=== PATIENT | male | born 1955 | race Caucasian/White ===

== ENCOUNTER 2023-04-19 11:29 | Inpatient (IN) | payer BC, MEDICAID ==
[~2023-04-19] VITALS: Ht 180.3 cm; Wt 182.8 kg
[~2023-04-19 11:29] MED LIST: ASPI-1071 PO; LISI5TAB22 PO; LOVA20TA2 PO; NO HOME MEDS; OMEP20TA43 PO; TERA2CAP4 PO
[2023-04-19 12:24] LABS: BASOPHILS % (AUTO) 0.2 % (0-1); EOSINOPHILS % (AUTO) 0.2 % (0-6); HEMATOCRIT 42.7 % (42.0-52.0); LYMPHOCYTES # (AUTO) 1.1 X10'3 (1.1-4.8); LYMPHOCYTES % (AUTO) 12.5 % (21-51); MEAN CORPUSCULAR HEMOGLOBIN 34.1 PG (27.0-31.0); MEAN CORPUSCULAR VOLUME 97.2 FL (78-98); MEAN PLATELET VOLUME 7.1 FL (7.4-10.4); MONOCYTES # (AUTO) 0.6 X10'3 (0-0.9); MONOCYTES % (AUTO) 7.1 % (2-12); NEUTROPHILS # (AUTO) 7.1 X10'3 (1.8-7.7); PLATELET COUNT 251 X10'3 (140-440); RED BLOOD COUNT 4.39 X10'6 (4.70-6.10); RED CELL DISTRIBUTION WIDTH 13.7 % (11.5-14.5); WHITE BLOOD COUNT 8.9 X10'3 (4.5-11.0)
[2023-04-19 12:26] LABS: ALANINE AMINOTRANSFERASE 17 U/L (12-78); ALBUMIN 4.2 G/DL (3.4-5.0); ALBUMIN/GLOBULIN RATIO 1.1 (1.1-1.5); ALKALINE PHOSPHATASE 89 IU/L (46-116); ANION GAP 8 (8-16); ASPARTATE AMINO TRANSFERASE 20 U/L (10-37); BILIRUBIN,TOTAL 1.2 MG/DL (0.1-1.0); BLOOD UREA NITROGEN 8 MG/DL (7-18); BUN/CREATININE RATIO 7.8 (10.0-20.0); CALCIUM 8.6 MG/DL (8.5-10.1); CHLORIDE 85 MMOL/L (99-107); CREATININE 1.02 MG/DL (0.60-1.10); GLUCOSE 97 MG/DL (70-104); POTASSIUM 4.6 MMOL/L (3.5-5.1); TOTAL CARBON DIOXIDE 27.4 MMOL/L (24-32); TOTAL PROTEIN 7.9 G/DL (6.4-8.2); eCRCL 74 ML/MIN; eGFR 73 ML/MIN
[2023-04-19 12:29] LABS: SODIUM 120 MMOL/L (135-145)
[2023-04-19 12:34] LABS: PRO BRAIN NATRIURETIC PEPTIDE 895 PG/ML (0-125)
[2023-04-19 12:49] LABS: APTT 29 SECONDS (22-32); PROTHROMBIN TIME 10.7 SECONDS (9.0-12.0)
[2023-04-19 13:10] LABS: BILIRUBIN,URINE NEGATIVE (Neg); CLARITY,URINE CLEAR (Clear); COLOR,URINE YELLOW (Yellow); GLUCOSE, URINE NEGATIVE (Neg); KETONES,URINE 15 mg/dl (Neg); LEUKOCYTE ESTERASE ,URINE NEGATIVE (Neg); NITRITES, URINE NEGATIVE (Neg); OCCULT BLOOD,URINE MODERATE (Neg); PROTEIN,URINE TRACE mg/dl (Neg); UROBILINOGEN,URINE 0.2 E.U/dL (0.2-1.0)
[2023-04-19 13:14] LABS: UA COLLECTION TYPE VOIDED
[2023-04-19 13:15] LABS: URINE AMPHETAMINE SCREEN NEGATIVE (Neg); URINE BARBITUATE SCREEN NEGATIVE (Neg); URINE BENZODIAZEPINES SCREEN NEGATIVE (Neg); URINE CANNABINOID SCREEN POSITIVE (Neg); URINE COCAINE SCREEN NEGATIVE (Neg); URINE METHADONE SCREEN NEGATIVE (Neg); URINE OPIATE SCREEN NEGATIVE (Neg); URINE PHENCYCLIDINE SCREEN NEGATIVE (Neg)
[2023-04-19 13:21] LABS: BACTERIA,URINE 1+ /HPF (Neg); MUCUS STRANDS FEW /LPF (Neg); RBC,URINE 0-2 /HPF (0-2); SQUAMOUS EPITHELIAL CELL,UR FEW /LPF (FEW); WBC,URINE 0-4 /HPF (0-4)
[2023-04-19 14:41] LABS: MAGNESIUM 1.4 MG/DL (1.5-2.4); THYROID STIMULATING HORMONE 0.52 ulU/ml (0.34-4.50)
[2023-04-19] MEDS ORDERED: LISI20TA28 PO (17:08)
[2023-04-19] MEDS ORDERED: CARV6.2555 PO (17:08)
[2023-04-19] MEDS ORDERED: FLUT1BLS13 INH (17:08)
[2023-04-19] MEDS ORDERED: POLY119P3 PO (17:08)
[2023-04-19] MEDS ORDERED: ALBUTEROL (17:08)
[2023-04-19] MEDS ORDERED: ASPI-1397 PO (17:08)
[2023-04-19] MEDS ORDERED: acetaminophen 325mg tablet PO PRN (17:55)
[2023-04-19] MEDS ORDERED: magnesium 2GM in 50ml NS 50 ML IV PRN (17:55)
[2023-04-19] MEDS ORDERED: nitroGLYCERIN 0.4mg SUBLingual tab SL PRN (17:55)
[2023-04-19] MEDS ORDERED: magnesium hydroxide 30ml (MOM) UD suspension PO PRN (17:55)
[2023-04-19] MEDS ORDERED: potassium Cl 20 mEq SR tablet PO PRN ×2 (17:55)
[2023-04-19] MEDS ORDERED: potassium Cl 40MEQ/1/2NS 520ml 520 ML IV PRN (17:55)
[2023-04-19] MEDS ORDERED: mag hydrox/Alum hydrox/simeth 30ml oral suspension PO PRN (17:55)
[2023-04-19] MEDS ORDERED: aminophylline 250mg/10ml inj. IV PRN (17:55)
[2023-04-19] MEDS ORDERED: metoprolol tartrate 1mg/ml inj IV PRN (17:55)
[2023-04-19] MEDS ORDERED: ondansetron/PF 4mg/2ml inj IV PRN (17:55)
[2023-04-19] MEDS ORDERED: magnesium 4gm in 100ml NS 100 ML IV PRN (17:55)
[2023-04-19] MEDS: normal saline 500ml IV soln 500 ML IV ONE (18:30)
[2023-04-19] MEDS: PERFLUTREN PROTEIN-A MICROSPHR (Optison) 0.22 MG/ML 3ML VIAL IV ONE (18:42)
[2023-04-19] MEDS: carvedilol 6.25mg tablet PO SCH (19:24)
[2023-04-19] MEDS: HYDROcodone/acetaminophen 10/325mg tab PO ONE (19:24)
[2023-04-19] MEDS: normal saline 1000ml 1,000 ML IV SCH (19:25)
[2023-04-19] MEDS: K and/or MAG REPLACEMENT MC SCH (19:58)
[2023-04-19] MEDS: docusate sod 100mg capsule PO SCH (20:12)
[2023-04-19] MEDS: enoxaparin 40mg/0.4ml syringe SQ SCH (20:12)
[2023-04-19] MEDS: temazepam 15mg capsule PO ONE (21:56)
[2023-04-20] VITALS (16 sets, daily range): BP systolic 134–195; BP diastolic 80–102; PULSE 97–120; RESP 14–20; TEMP 97.2–98.4; O2SAT 96–100
[2023-04-20] MEDS: traMADol 50MG tablet PO PRN (04:35)
[2023-04-20 06:07] LABS: ALANINE AMINOTRANSFERASE 13 U/L (12-78); ALBUMIN 3.4 G/DL (3.4-5.0); ALBUMIN/GLOBULIN RATIO 1.1 (1.1-1.5); ALKALINE PHOSPHATASE 64 IU/L (46-116); ANION GAP 9 (8-16); ASPARTATE AMINO TRANSFERASE 11 U/L (10-37); BILIRUBIN,TOTAL 1.3 MG/DL (0.1-1.0); BLOOD UREA NITROGEN 7 MG/DL (7-18); BUN/CREATININE RATIO 7.6 (10.0-20.0); CALCIUM 8.5 MG/DL (8.5-10.1); CHLORIDE 92 MMOL/L (99-107); CHOL/HDL RATIO 1.8 (0.00-4.99); CHOLESTEROL 172 MG/DL (0-200); CREATININE 0.92 MG/DL (0.60-1.10); GLUCOSE 75 MG/DL (70-104); HDL CHOLESTEROL 96 MG/DL (35-60); LDL CHOLESTEROL 48 MG/DL (50-100); MAGNESIUM 1.5 MG/DL (1.5-2.4); SODIUM 127 MMOL/L (135-145); TOTAL CARBON DIOXIDE 25.7 MMOL/L (24-32); TOTAL PROTEIN 6.6 G/DL (6.4-8.2); TRIGLYCERIDES 86 MG/DL (20-135); eCRCL 82 ML/MIN; eGFR 82 ML/MIN
[2023-04-20 06:08] LABS: BASOPHILS % (AUTO) 0.7 % (0-1); EOSINOPHILS % (AUTO) 0.2 % (0-6); HEMATOCRIT 36.8 % (42.0-52.0); HEMOGLOBIN 12.7 g/dl (14.0-17.9); LYMPHOCYTES # (AUTO) 1.2 X10'3 (1.1-4.8); LYMPHOCYTES % (AUTO) 16.4 % (21-51); MEAN CORPUSCULAR HEMOGLOBIN 33.8 PG (27.0-31.0); MEAN CORPUSCULAR HGB CONC 34.4 g/dL (33.0-36.5); MEAN CORPUSCULAR VOLUME 98.2 FL (78-98); MEAN PLATELET VOLUME 7.1 FL (7.4-10.4); MONOCYTES # (AUTO) 0.8 X10'3 (0-0.9); MONOCYTES % (AUTO) 11.2 % (2-12); NEUTROPHILS # (AUTO) 5.2 X10'3 (1.8-7.7); NEUTROPHILS % (AUTO) 71.5 % (42-75); PLATELET COUNT 192 X10'3 (140-440); RED BLOOD COUNT 3.75 X10'6 (4.70-6.10); RED CELL DISTRIBUTION WIDTH 13.5 % (11.5-14.5); WHITE BLOOD COUNT 7.3 X10'3 (4.5-11.0)
[2023-04-20] MEDS: lisinopril 20mg tablet PO SCH (09:03)
[2023-04-20] MEDS: regadenoson 0.4mg/5ml syringe IV PRN (11:22)
[2023-04-20] MEDS: polyethylene glycol 3350 17gm powd pack PO ONE (20:11)
[2023-04-20 23:23] LABS: ALBUMIN 3.2 G/DL (3.4-5.0); ANION GAP 6 (8-16); BLOOD UREA NITROGEN 11 MG/DL (7-18); CHLORIDE 92 MMOL/L (99-107); CREATININE 0.92 MG/DL (0.60-1.10); GLUCOSE 112 MG/DL (70-104); POTASSIUM 3.9 MMOL/L (3.5-5.1); SODIUM 125 MMOL/L (135-145); TOTAL CARBON DIOXIDE 27.5 MMOL/L (24-32); eCRCL 82 ML/MIN; eGFR 82 ML/MIN
[2023-04-21] MEDS: traZODone 50mg tablet PO PRN (00:07)
[2023-04-21 02:00] VITALS: BP 175/93; PULSE 85; RESP 15; TEMP 97.2; O2SAT 95
[2023-04-21 05:09] VITALS: BP 168/100
[2023-04-21] MEDS: hydrALAZINE 20mg/ml inj. IV PRN (05:09)
[2023-04-21 06:00] VITALS: BP 163/96; PULSE 97; RESP 20; TEMP 97.5; O2SAT 97
[2023-04-21 06:11] LABS: BASOPHILS # (AUTO) 0.1 X10'3 (0-0.2); BASOPHILS % (AUTO) 0.9 % (0-1); EOSINOPHILS % (AUTO) 0.4 % (0-6); HEMATOCRIT 35.8 % (42.0-52.0); HEMOGLOBIN 12.4 g/dl (14.0-17.9); LYMPHOCYTES # (AUTO) 1.5 X10'3 (1.1-4.8); LYMPHOCYTES % (AUTO) 19.1 % (21-51); MEAN CORPUSCULAR HEMOGLOBIN 34.1 PG (27.0-31.0); MEAN CORPUSCULAR HGB CONC 34.8 g/dL (33.0-36.5); MEAN CORPUSCULAR VOLUME 97.9 FL (78-98); MONOCYTES # (AUTO) 0.9 X10'3 (0-0.9); MONOCYTES % (AUTO) 10.9 % (2-12); NEUTROPHILS # (AUTO) 5.5 X10'3 (1.8-7.7); NEUTROPHILS % (AUTO) 68.7 % (42-75); PLATELET COUNT 182 X10'3 (140-440); RED BLOOD COUNT 3.65 X10'6 (4.70-6.10); RED CELL DISTRIBUTION WIDTH 13.4 % (11.5-14.5); WHITE BLOOD COUNT 8.1 X10'3 (4.5-11.0)
[2023-04-21 06:29] LABS: ALANINE AMINOTRANSFERASE 15 U/L (12-78); ALBUMIN 3.3 G/DL (3.4-5.0); ALBUMIN/GLOBULIN RATIO 1.1 (1.1-1.5); ALKALINE PHOSPHATASE 74 IU/L (46-116); ANION GAP 8 (8-16); ASPARTATE AMINO TRANSFERASE 19 U/L (10-37); BILIRUBIN,TOTAL 0.9 MG/DL (0.1-1.0); BLOOD UREA NITROGEN 8 MG/DL (7-18); BUN/CREATININE RATIO 9.3 (10.0-20.0); CALCIUM 8.1 MG/DL (8.5-10.1); CHLORIDE 93 MMOL/L (99-107); CREATININE 0.86 MG/DL (0.60-1.10); GLUCOSE 99 MG/DL (70-104); MAGNESIUM 1.4 MG/DL (1.5-2.4); POTASSIUM 4.1 MMOL/L (3.5-5.1); SODIUM 127 MMOL/L (135-145); TOTAL CARBON DIOXIDE 25.8 MMOL/L (24-32); TOTAL PROTEIN 6.4 G/DL (6.4-8.2); eCRCL 88 ML/MIN; eGFR 88 ML/MIN
[2023-04-21 08:00] VITALS: RESP 20; O2SAT 97
[2023-04-21] MEDS: polyethylene glycol 3350 17gm powd pack PO SCH (08:00)
[2023-04-21] MEDS: pantoprazole 40mg Tablet.DR PO SCH (08:14)
[2023-04-21] MEDS: amLODIPine 5mg tablet PO SCH (08:20)
[2023-04-21 11:00] VITALS: BP 164/98; PULSE 103; RESP 18; TEMP 98; O2SAT 98
[2023-04-21] MEDS ORDERED: PANT-47 PO (11:16)
[2023-04-21] MEDS ORDERED: iohexol 300mg/ml 100ml inj. ONE (11:59)
[2023-04-21] MEDS ORDERED: HYDR-3965 PO (13:38)
[2023-04-21 15:30] VITALS: RESP 20; O2SAT 97
== END 2023-04-21 15:44 | disposition home or self-care (01) | DRG 641 ==
LOC: ER 11:29 → ED HOLD 18:01 → PCU 3S 04-20 03:05
PROVIDERS: ADMIT Family Medicine; ATTEND Family Medicine
PROC: 4A02XM4 Measurement of Cardiac Total Activity, External Approach (ICD-10-PCS; principal; 2023-04-20)
PROC: 3E033HZ Introduction of Radioactive Substance into Peripheral Vein, Percutaneous Approach (ICD-10-PCS; 2023-04-20)
DX: E87.1 Hypo-osmolality and hyponatremia (principal); R07.89 Other chest pain; I16.0 Hypertensive urgency; K21.9 Gastro-esophageal reflux disease without esophagitis; E78.5 Hyperlipidemia, unspecified; I10 Essential (primary) hypertension; Z20.822 Contact with and (suspected) exposure to COVID-19; E87.8 Other disorders of electrolyte and fluid balance, not elsewhere classified; J44.9 Chronic obstructive pulmonary disease, unspecified; Z83.79 Family history of other diseases of the digestive system; Z82.5 Family history of asthma and other chronic lower respiratory diseases; Z82.49 Family history of ischemic heart disease and other diseases of the circulatory system; Z79.899 Other long term (current) drug therapy; Z79.82 Long term (current) use of aspirin; Z87.891 Personal history of nicotine dependence
CPT/HCPCS: 36415; 71045; 71260; 72040; 73030; 78452; 80048; 80053; 80061; 80305; 81001; 83735; 83880; 84439; 84443; 84484; 85025; 85610; 85730; 87081; 87502; 87503; 87811; 93005; 93017; 93306; 99291; A9500; G0378; J0360; J1650; J2785; J3490; J7030; J7040; Q9967

== ENCOUNTER 2023-05-20 14:59 | Inpatient (IN) | payer BC, MEDICAID ==
[~2023-05-20] VITALS: Ht 180.3 cm; Wt 84.1 kg
[~2023-05-20 14:59] MED LIST changes: +ALBUTEROL; -ASPI-1071 PO; +ASPI-1397 PO; +CARV6.2555 PO; +FLUT1BLS13 INH; +HYDR-3965 PO; +LISI20TA28 PO; +PANT-47 PO; +POLY119P3 PO
[2023-05-20 16:15] LABS: BASOPHILS % (AUTO) 0.5 % (0-1); EOSINOPHILS % (AUTO) 0.2 % (0-6); HEMOGLOBIN 12.7 g/dl (14.0-17.9); LYMPHOCYTES # (AUTO) 1.2 X10'3 (1.1-4.8); LYMPHOCYTES % (AUTO) 13.1 % (21-51); MEAN CORPUSCULAR HEMOGLOBIN 33.4 PG (27.0-31.0); MEAN CORPUSCULAR HGB CONC 35.4 g/dL (33.0-36.5); MEAN CORPUSCULAR VOLUME 94.5 FL (78-98); MEAN PLATELET VOLUME 7.9 FL (7.4-10.4); MONOCYTES # (AUTO) 1.2 X10'3 (0-0.9); NEUTROPHILS # (AUTO) 6.9 X10'3 (1.8-7.7); NEUTROPHILS % (AUTO) 73.2 % (42-75); PLATELET COUNT 175 X10'3 (140-440); RED BLOOD COUNT 3.81 X10'6 (4.70-6.10); RED CELL DISTRIBUTION WIDTH 13.3 % (11.5-14.5); WHITE BLOOD COUNT 9.5 X10'3 (4.5-11.0)
[2023-05-20 16:46] LABS: ALANINE AMINOTRANSFERASE 21 U/L (12-78); ALBUMIN 3.7 G/DL (3.4-5.0); ALKALINE PHOSPHATASE 65 IU/L (46-116); ANION GAP 8 (8-16); ASPARTATE AMINO TRANSFERASE 19 U/L (10-37); BILIRUBIN,TOTAL 1.3 MG/DL (0.1-1.0); BLOOD UREA NITROGEN 12 MG/DL (7-18); CHLORIDE 73 MMOL/L (99-107); CREATININE 1.09 MG/DL (0.60-1.10); GLUCOSE 108 MG/DL (70-104); POTASSIUM 3.6 MMOL/L (3.5-5.1); TOTAL CARBON DIOXIDE 30.7 MMOL/L (24-32); TOTAL PROTEIN 7.4 G/DL (6.4-8.2); eCRCL 69 ML/MIN; eGFR 67 ML/MIN
[2023-05-20 16:52] LABS: SODIUM 112 MMOL/L (135-145)
[2023-05-20] MEDS ORDERED: ondansetron/PF 4mg/2ml inj IV PRN (19:50)
[2023-05-20] MEDS ORDERED: heparin 10,000 units/1 ML INJ IV PRN (19:50)
[2023-05-20] MEDS ORDERED: acetaminophen 325mg tablet PO PRN ×2 (19:50)
[2023-05-20] MEDS ORDERED: magnesium hydroxide 30ml (MOM) UD suspension PO PRN (19:50)
[2023-05-20] MEDS ORDERED: morphine 2 MG/ML inj. syringe IV PRN (19:50)
[2023-05-20] MEDS ORDERED: morphine 4 MG/ML inj SYRINge IV PRN (19:50)
[2023-05-20] MEDS: heparin 10,000 units/1 ML INJ IV ONE (20:09)
[2023-05-20 20:16] LABS: ETHANOL < 10 MG/DL (<10)
[2023-05-20] MEDS: enoxaparin 40mg/0.4ml syringe SQ SCH (20:21)
[2023-05-20] MEDS: normal saline 500ml IV soln 1,000 ML IV ONE (21:00)
[2023-05-20 21:18] LABS: THYROID STIMULATING HORMONE 0.78 ulU/ml (0.34-4.50)
[2023-05-20 21:39] LABS: BILIRUBIN,URINE NEGATIVE (Neg); CLARITY,URINE CLEAR (Clear); COLOR,URINE YELLOW (Yellow); GLUCOSE, URINE NEGATIVE (Neg); KETONES,URINE TRACE mg/dl (Neg); LEUKOCYTE ESTERASE ,URINE NEGATIVE (Neg); NITRITES, URINE NEGATIVE (Neg); OCCULT BLOOD,URINE SMALL (Neg); PH,URINE 5.5 (4.8-8.0); PROTEIN,URINE NEGATIVE (Neg); UROBILINOGEN,URINE 0.2 E.U/dL (0.2-1.0)
[2023-05-20 21:42] LABS: SODIUM,URINE RANDOM 45 MEQ/L; UA COLLECTION TYPE CLN CATCH MIDSTREAM
[2023-05-20 21:43] LABS: OSMOLALITY UA 350 MOSM/K (50-1400)
[2023-05-20 21:45] LABS: BACTERIA,URINE FEW /HPF (Neg); MUCUS STRANDS NONE SEEN /LPF (Neg); RBC,URINE 0-2 /HPF (0-2); SQUAMOUS EPITHELIAL CELL,UR FEW /LPF (FEW); WBC,URINE 0-4 /HPF (0-4)
[2023-05-20 23:03] LABS: ALANINE AMINOTRANSFERASE 17 U/L (12-78); ALBUMIN 3.6 G/DL (3.4-5.0); ALKALINE PHOSPHATASE 69 IU/L (46-116); ANION GAP 5 (8-16); ASPARTATE AMINO TRANSFERASE 20 U/L (10-37); BILIRUBIN,TOTAL 1.4 MG/DL (0.1-1.0); BLOOD UREA NITROGEN 12 MG/DL (7-18); BUN/CREATININE RATIO 11.7 (10.0-20.0); CALCIUM 8.6 MG/DL (8.5-10.1); CHLORIDE 74 MMOL/L (99-107); CREATININE 1.03 MG/DL (0.60-1.10); GLUCOSE 99 MG/DL (70-104); POTASSIUM 3.4 MMOL/L (3.5-5.1); TOTAL CARBON DIOXIDE 29.8 MMOL/L (24-32); TOTAL PROTEIN 7.1 G/DL (6.4-8.2); eCRCL 73 ML/MIN; eGFR 72 ML/MIN
[2023-05-20 23:08] LABS: SODIUM 109 MMOL/L (135-145)
[2023-05-20] MEDS: normal saline 1000ml 1,000 ML IV SCH (23:33)
[2023-05-21] VITALS (7 sets, daily range): BP systolic 95–130; BP diastolic 51–78; PULSE 85–106; RESP 13–18; TEMP 97.5–98.1; O2SAT 94–98
[2023-05-21 01:47] LABS: BASOPHILS # (AUTO) 0.1 X10'3 (0-0.2); BASOPHILS % (AUTO) 0.7 % (0-1); EOSINOPHILS % (AUTO) 0.4 % (0-6); HEMOGLOBIN 11.7 g/dl (14.0-17.9); LYMPHOCYTES # (AUTO) 1.8 X10'3 (1.1-4.8); LYMPHOCYTES % (AUTO) 23.4 % (21-51); MEAN PLATELET VOLUME 7.3 FL (7.4-10.4); MONOCYTES % (AUTO) 13.5 % (2-12); NEUTROPHILS # (AUTO) 4.8 X10'3 (1.8-7.7); PLATELET COUNT 150 X10'3 (140-440); WHITE BLOOD COUNT 7.8 X10'3 (4.5-11.0)
[2023-05-21 01:56] LABS: ALBUMIN 3.3 G/DL (3.4-5.0); ANION GAP 4 (8-16); BLOOD UREA NITROGEN 11 MG/DL (7-18); BUN/CREATININE RATIO 10.7 (10.0-20.0); CALCIUM 8.1 MG/DL (8.5-10.1); CHLORIDE 76 MMOL/L (99-107); CREATININE 1.03 MG/DL (0.60-1.10); GLUCOSE 89 MG/DL (70-104); POTASSIUM 3.2 MMOL/L (3.5-5.1); TOTAL CARBON DIOXIDE 31.8 MMOL/L (24-32); eCRCL 73 ML/MIN; eGFR 72 ML/MIN
[2023-05-21 02:14] LABS: SODIUM 112 MMOL/L (135-145)
[2023-05-21 02:19] LABS: HEMATOCRIT 32.9 % (42.0-52.0)
[2023-05-21 02:20] LABS: MEAN CORPUSCULAR HGB CONC 35.5 g/dL (33.0-36.5)
[2023-05-21] MEDS: potassium chloride 10mEq ER tablet PO ONE (02:20)
[2023-05-21 02:21] LABS: MEAN CORPUSCULAR HEMOGLOBIN 33.4 PG (27.0-31.0); RED CELL DISTRIBUTION WIDTH 13.1 % (11.5-14.5)
[2023-05-21 08:49] LABS: ALBUMIN 3.4 G/DL (3.4-5.0); ANION GAP 5 (8-16); BLOOD UREA NITROGEN 11 MG/DL (7-18); BUN/CREATININE RATIO 11.5 (10.0-20.0); CALCIUM 8.6 MG/DL (8.5-10.1); CHLORIDE 79 MMOL/L (99-107); CREATININE 0.96 MG/DL (0.60-1.10); GLUCOSE 93 MG/DL (70-104); POTASSIUM 3.4 MMOL/L (3.5-5.1); TOTAL CARBON DIOXIDE 31.1 MMOL/L (24-32); eCRCL 78 ML/MIN; eGFR 78 ML/MIN
[2023-05-21 08:57] LABS: SODIUM 115 MMOL/L (135-145)
[2023-05-21] MEDS: sodium chloride 1gm tablet PO SCH (13:30)
[2023-05-22] VITALS (7 sets, daily range): BP systolic 112–143; BP diastolic 76–91; PULSE 77–99; RESP 16–21; TEMP 97.3–97.8; O2SAT 96–100
[2023-05-22 07:18] LABS: BASOPHILS % (AUTO) 0.6 % (0-1); EOSINOPHILS % (AUTO) 0.4 % (0-6); HEMATOCRIT 35.4 % (42.0-52.0); HEMOGLOBIN 12.4 g/dl (14.0-17.9); LYMPHOCYTES # (AUTO) 1.7 X10'3 (1.1-4.8); LYMPHOCYTES % (AUTO) 23.1 % (21-51); MEAN CORPUSCULAR HEMOGLOBIN 33.6 PG (27.0-31.0); MEAN CORPUSCULAR VOLUME 96.1 FL (78-98); MEAN PLATELET VOLUME 7.5 FL (7.4-10.4); MONOCYTES # (AUTO) 0.9 X10'3 (0-0.9); MONOCYTES % (AUTO) 13.2 % (2-12); NEUTROPHILS # (AUTO) 4.5 X10'3 (1.8-7.7); NEUTROPHILS % (AUTO) 62.7 % (42-75); PLATELET COUNT 157 X10'3 (140-440); RED BLOOD COUNT 3.69 X10'6 (4.70-6.10); RED CELL DISTRIBUTION WIDTH 13.4 % (11.5-14.5); WHITE BLOOD COUNT 7.2 X10'3 (4.5-11.0)
[2023-05-22 07:25] LABS: ALBUMIN 3.4 G/DL (3.4-5.0); ANION GAP 8 (8-16); BLOOD UREA NITROGEN 10 MG/DL (7-18); BUN/CREATININE RATIO 10.4 (10.0-20.0); CALCIUM 8.8 MG/DL (8.5-10.1); CHLORIDE 88 MMOL/L (99-107); CREATININE 0.96 MG/DL (0.60-1.10); GLUCOSE 105 MG/DL (70-104); POTASSIUM 3.5 MMOL/L (3.5-5.1); SODIUM 126 MMOL/L (135-145); TOTAL CARBON DIOXIDE 30.2 MMOL/L (24-32); eCRCL 78 ML/MIN; eGFR 78 ML/MIN
[2023-05-23 02:00] VITALS: BP 143/82; PULSE 89; RESP 16; TEMP 98.5; O2SAT 97
[2023-05-23 07:00] VITALS: BP 172/92; PULSE 84; RESP 14; TEMP 98.1; O2SAT 99
[2023-05-23 07:08] LABS: BASOPHILS # (AUTO) 0.1 X10'3 (0-0.2); BASOPHILS % (AUTO) 0.7 % (0-1); EOSINOPHILS % (AUTO) 0.4 % (0-6); HEMOGLOBIN 11.8 g/dl (14.0-17.9); LYMPHOCYTES # (AUTO) 1.8 X10'3 (1.1-4.8); MEAN CORPUSCULAR HEMOGLOBIN 33.5 PG (27.0-31.0); MEAN CORPUSCULAR HGB CONC 34.8 g/dL (33.0-36.5); MEAN CORPUSCULAR VOLUME 96.3 FL (78-98); MEAN PLATELET VOLUME 7.4 FL (7.4-10.4); MONOCYTES % (AUTO) 11.8 % (2-12); NEUTROPHILS # (AUTO) 5.6 X10'3 (1.8-7.7); NEUTROPHILS % (AUTO) 66.1 % (42-75); PLATELET COUNT 175 X10'3 (140-440); RED BLOOD COUNT 3.53 X10'6 (4.70-6.10); RED CELL DISTRIBUTION WIDTH 13.2 % (11.5-14.5); WHITE BLOOD COUNT 8.5 X10'3 (4.5-11.0)
[2023-05-23 07:17] LABS: ALBUMIN 3.5 G/DL (3.4-5.0); ANION GAP 5 (8-16); BLOOD UREA NITROGEN 13 MG/DL (7-18); BUN/CREATININE RATIO 14.3 (10.0-20.0); CALCIUM 8.8 MG/DL (8.5-10.1); CHLORIDE 89 MMOL/L (99-107); CREATININE 0.91 MG/DL (0.60-1.10); GLUCOSE 102 MG/DL (70-104); POTASSIUM 3.3 MMOL/L (3.5-5.1); SODIUM 126 MMOL/L (135-145); TOTAL CARBON DIOXIDE 31.8 MMOL/L (24-32); eCRCL 83 ML/MIN; eGFR 83 ML/MIN
[2023-05-23 08:00] VITALS: RESP 16; O2SAT 98
[2023-05-23] MEDS: amLODIPine 5mg tablet PO SCH (08:24)
[2023-05-23] MEDS: furosemide 40mg/4ml inj IV ONE (08:26)
[2023-05-23 10:00] VITALS: BP 157/88; PULSE 110; RESP 18; TEMP 98.3; O2SAT 97
[2023-05-23] MEDS: POTASSIUM BICARB 20meq eff tab 20 MEQ TABLET.EFF PO ONE (11:09)
[2023-05-23 12:50] LABS: ALBUMIN 3.8 G/DL (3.4-5.0); ANION GAP 4 (8-16); BLOOD UREA NITROGEN 13 MG/DL (7-18); CALCIUM 9.1 MG/DL (8.5-10.1); CHLORIDE 88 MMOL/L (99-107); CREATININE 0.93 MG/DL (0.60-1.10); GLUCOSE 81 MG/DL (70-104); POTASSIUM 3.4 MMOL/L (3.5-5.1); SODIUM 126 MMOL/L (135-145); eCRCL 81 ML/MIN; eGFR 81 ML/MIN
[2023-05-23] MEDS: sodium chloride 1gm tablet PO STA (14:17)
[2023-05-23] MEDS: potassium Cl 20 mEq SR tablet PO STA (14:17)
[2023-05-23] MEDS ORDERED: CARV-50 PO ×2 (14:55)
== END 2023-05-23 15:30 | disposition home or self-care (01) | DRG 641 ==
LOC: ER 15:00 → ED HOLD 19:56 → PCU 3S 05-21 07:52
PROVIDERS: ADMIT Internal Medicine Sleep Medicine; ATTEND Internal Medicine Sleep Medicine
DX: E87.1 Hypo-osmolality and hyponatremia (principal); J44.9 Chronic obstructive pulmonary disease, unspecified; F10.10 Alcohol abuse, uncomplicated; T50.2X5A Adverse effect of carbonic-anhydrase inhibitors, benzothiadiazides and other diuretics, initial encounter; Z82.5 Family history of asthma and other chronic lower respiratory diseases; Z82.49 Family history of ischemic heart disease and other diseases of the circulatory system; Y92.89 Other specified places as the place of occurrence of the external cause; Z79.899 Other long term (current) drug therapy
CPT/HCPCS: 36415; 80048; 80053; 80320; 81001; 83930; 83935; 84300; 84443; 85025; 85730; 87081; 97161; 97530; 99291; G0378; J1650; J1940; J7030; J7040